=== PATIENT | female | born 1935 | race African-American/Black ===

== ENCOUNTER 2017-05-25 10:32 | Emergency (ER) | payer MEDICARE ==
[2017-05-25 11:55] VITALS: BP 137/80
--- NOTE | 2017-05-25 12:40 | Diagnostic Imaging Report ---
DONALDO LARSEN (MEGAN) - [facility] [address] [facility] [address] 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 Generalized osteopenia. No fracture. No dislocation. Superior and inferior pubic rami and iliac wings are without abnormality. Lumbar spine degenerative changes. Impression: Bilateral hip prostheses. Degenerative changes. No evidence for fracture. Electronically signed on May 25, 2017 11:25:01 AM MATERNITY FLOOR SUPERVISOR by: Patrick COLLINS
--- NOTE | 2017-05-25 14:48 | ED Physician Documentation ---
Fall - HISTORIAN Historian: patient - HPI Stated Complaint: fall Chief Complaint: Fall Onset: just prior to arrival Where: home Context: lost balance r: mild Associated Symptoms:: no loss of consciousness Location of Pain/Injury: other (right hip) Injury to Right Extremity: none Injury to Left Extremity: none Further Comments: yes (81 year old female patient presents with complaint of right hip pain after a fall from standing this morning at home. Patient was discharged from intermediate yesterday. Recent right hip replacement) - ROS CONST: no problems NEURO: denies: dizziness MS/SKIN/LYMPH: denies: weakness, numbness, neck pain, back pain, ankle swelling , leg swelling, rash, other EYES/ENT: none CVS/RESP: none GI/: denies: nausea, vomiting - PAST HX Past History: cardiac disease, diabetes Type 2, other (GERD, hx CABG) Allergies/Adverse Reactions: Allergies Allergy/AdvReac Type Severity Reaction Status Date / Time No Known Allergies Allergy Verified 05/25/17 10:38 Home Medications: Ambulatory Orders Medication Instructions Recorded Apixaban [Eliquis] 2.5 mg PO BID 05/25/17 Gabapentin [Neurontin] 300 mg PO HS 05/25/17 Metformin HCl [Glucophage] 500 mg PO [id number] 05/25/17 Omeprazole [Prilosec] 40 mg PO DAILY 05/25/17 Primidone [Mysoline] 50 mg PO TID 05/25/17 - SOCIAL HX Smoking History: non-smoker - FAMILY HX Family History: none - VITAL SIGNS Vital Signs: Vital Signs Temp Pulse Resp BP Pulse Ox 97.4 F L 88 14 137/80 99 05/25/17 10:32 05/25/17 11:54 05/25/17 11:54 05/25/17 11:54 05/25/17 11:54 - REVIEWED ASSESSMENTS Nursing Assessment Reviewed: Yes Vitals Reviewed: Yes ED Results Lab/Radiology - Radiology Radiology Impressions: Examination: Plain film pelvis/hip History: Fall Comparison exams: None provided Findings: 3 views of the pelvis and right hip demonstrates bilateral hip prostheses. Generalized osteopenia. No fracture. No dislocation. Superior and inferior pubic rami and iliac wings are without abnormality. Lumbar spine degenerative changes. Impression: Bilateral hip prostheses. Degenerative changes. No evidence for fracture. 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 by: - Orders Orders: ED Orders Category Date Time Status RT HIP 2VIEW COMPLETE [RAD] Stat Exams 05/25/17 10:36 Completed Fall Physical Exam - Physical Exam General Appearance: no acute distress, alert Eye: CYRIL Resp/CVS: chest non-tender Abdomen: soft Neuro: oriented x3, CN's nml as tested, sensation nml, motor nml, mood/affect nml, plan examiner nml Skin: color nml Back: normal inspection Extremities: atraumatic, pelvis stable, no pedal edema, nml ROM, nml color/temp , other (right hip tender to touch; no abrasion, no hematoma) - Leonard Coma Score Eyes Open: Spontaneous Speech: Oriented Motor: Obeys Commands Discharge Clincal Impression: Contusion of right hip Qualifiers: Encounter type: initial encounter Qualified Code(s): S70.01XA - Contusion of right hip, initial encounter Fall Qualifiers: Encounter type: initial encounter Qualified Code(s): W19.XXXA - Unspecified fall, initial encounter Referrals: Kaela Ponce MD [Primary Care Provider] - 2 Days Condition: Stable Disposition: 01 HOME, SELF-CARE Decision to Admit: NO Decision Time: 11:45
== END 2017-05-25 11:54 | disposition home or self-care (01) ==
LOC: ED 10:32
DX: S70.01XA Contusion of right hip, initial encounter (principal); W19.XXXA Unspecified fall, initial encounter
CPT/HCPCS: 73502; 99282

== ENCOUNTER 2017-05-29 13:23 | Emergency (ER) | payer MEDICARE ==
[2017-05-29] MEDS: 0.9 % SODIUM CHLORIDE 1,000 ML IV SCH (13:23)
--- NOTE | 2017-05-29 13:36 | ED Physician Documentation ---
General Adult - HISTORIAN Historian: other (daughter) - [facility] Chief Complaint: General Adult (hypoxemia) Additional Information: Patient was noted to be lethargic when she awoke this am . Has become worse throughout the AM. Family states the only discomfort that she voiced this AM was her usual abd pain. Did not seem any worse then before. No other complaints. Patient was noticed not to be breathing well and EMS was contacted. On arrival of EMS patient was found to be hypoxic with SAO2 of 77%. Patient was started on NRM and transported to the ED. On arrival patient was lethargic, answering some questions appropriately, would fall asleep easily, but arousable to verbal stimuli. Patient's pulse ox remained in the high 70's to low 80s. Patient denied any discomfort. Patient had a hip fracture with replacement about 6 weeks ago. Was at [facility] for rehab services. Was discharged home last and seemed to be doing OK until this AM. Onset: hours (Ptie) Timing: still present Severity: moderate - ROS CONST: no problems. denies: fever, recent illness, chills MS/SKIN/LYMPH: joint pain. denies: calf pain NEURO/PSYCH: numbness. denies: headache - PAST HX Past History: COPD, hypertension, other (AAA) Other History: diabetes Type 2, other (GA) Surgeries/Procedures: hysterectomy Allergies/Adverse Reactions: Allergies Allergy/AdvReac Type Severity Reaction Status Date / Time No Known Allergies Allergy Verified 05/25/17 10:38 Home Medications: Ambulatory Orders Medication Instructions Recorded Apixaban [Eliquis] 2.5 mg PO BID 05/25/17 Gabapentin [Neurontin] 300 mg PO HS 05/25/17 Metformin HCl [Glucophage] 500 mg PO [id number] 05/25/17 Omeprazole [Prilosec] 40 mg PO DAILY 05/25/17 Primidone [Mysoline] 50 mg PO TID 05/25/17 - SOCIAL HX Smoking History: non-smoker Alcohol Use: none Drug Use: none - FAMILY HX Family History: No - VITAL SIGNS Vital Signs: Vital Signs Temp Pulse Resp BP Pulse Ox 137/80 05/25/17 11:54 - REVIEWED ASSESSMENTS Nursing Assessment Reviewed: Yes Vitals Reviewed: Yes Progress - Progress Progress: Patient was encouraged to breath but only brought SAO2 up to the lower ninties for a short period. Patient was started on bag mask assistance. Patient's family was consulted about code status and if they wish to proceed with intubation. They stated that they wanted everything done to help keep her a live. They are aware that with COPD there may be difficutlies with removing ventilatory assistance. Etomidate was given nd followed by succinylcholine. Patient intubeted with #7 tube. CO2 detector showed Co2 present, breath sound present bilaterally. Chest x -ray show tube about 2 cm above griffin. SAO2 improved to the mid ninties when a good reading was abouttained. Patient is diabetic BS 169. [facility] called and no ICU beds available. [facility] was call at 1415 for transfer. Bed available. Physician accepted at 1515. Patient remained in critical but stable condition during time in the ED. Patient was transferred to [facility] via helicopter. CT scan of head and chest not done because staff was not available to safely transport and monitor patient during time in the Radiology department. - EKG/XRAY/CT EKG: NSR, nonspecific ST T wave chg Critical Care Note - Critical Care Note Total Time (mins): 90 (direct care) General Adult Physical Exam - PHYSICAL EXAM GENERAL APPEARANCE: mild distress EENT: eye inspection normal, ENT inspection normal, pharynx normal, no signs of dehydration NECK: No: supple (arthritic), lymphadenopathy RESPIRATORY: no resp distress, chest non-tender, breath sounds normal. No: wheezes, rales, rhonchi CVS: reg rate & rhythm, heart sounds normal, equal pulses ABDOMEN: soft, tenderness (mild tenderness), mass (palpable mass in mid abd) SKIN: warm/dry EXTREMITIES: non-tender NEURO: motor nml (moves all extremities,), sensation nml (withdrawals from pain) , other (GCS 9/15). No: oriented X3, CN's nml as tested, cognition normal Discharge Clincal Impression: Hypoxia Referrals: Kaela Ponce MD [Primary Care Provider] - 2 Days Condition: Stable Disposition: HOME, SELF-CARE Decision to Admit: [id number] Date of Decison to Admit: 05/29/17 Decision Time: 14:00
[2017-05-29] MEDS: ETOMIDATE 20 MG/10 ML IV ONE ×3 (13:58)
[2017-05-29] MEDS: SUCCINYLCHOLINE CHLORIDE 20 MG/ML 10ML VIAL IVP ONE (14:02)
[2017-05-29 14:17] LABS: BASOPHILS % 0.9 (0.0-1.5); EOSINOPHILS % 3.9 % (0.0-6.8); MEAN CORPUSCULAR HEMOGLOBIN 27.8 pg (28.0-34.0); MEAN CORPUSCULAR VOLUME 89.9 fl (80.0-100.0); MONOCYTES % 5.9 % (0.0-11.0); NEUTROPHILS # 2.6 # k/uL (1.4-7.7)
[2017-05-29 14:30] LABS: eGFR (African) > 60; eGFR (Non-African) 42
--- NOTE | 2017-05-29 14:42 | Diagnostic Imaging Report ---
FLOR DUCKWORTH [facility] [address] [facility] [address] [address] Report Submission Date: May 29, 2017 2:35:26 PM IN HOUSE CRA Patient Study Name: OPERA DIAMOND Date: May 29, 2017 2:11:48 PM IN HOUSE CRA Modality Type: CR Gender: F Description: CHEST : 31 Institution: [facility] Physician: FLOR DUCKWORTH Examination: Portable chest History: Check tube placement. Comparison exam: None provided. Findings: Single view of the chest demonstrates a normal cardiac and mediastinal silhouette. Vascular calcifications involving the aortic arch. Lung street without focal infiltrate. Flattening of the diaphragms. Endotracheal tube : tip 1.7 cm above the xena. Osseous structures are appropriate for age. Impression: No acute appearing pulmonary process. Endotracheal tube: tip 1.7 cm above the xena. Electronically signed on May 29, 2017 2:35:26 PM IN HOUSE CRA by: Patrick COLLINS
[2017-05-29 15:58] LABS: CANNABINOIDS NEGATIVE ng/mL (< 50); METHYLENEDIOXYMETHAMPHETAMINE NEGATIVE ng/mL (<500)
[2017-05-29 16:36] VITALS: BP 89/50
== END 2017-05-29 15:25 | disposition home or self-care (01) ==
LOC: ED 13:23
DX: R09.02 Hypoxemia (principal); J44.1 Chronic obstructive pulmonary disease with (acute) exacerbation; I10 Essential (primary) hypertension; E11.9 Type 2 diabetes mellitus without complications; I71.4 Abdominal aortic aneurysm, without rupture
CPT/HCPCS: 71010; 80053; 80377; 83605; 84484; 85025; 99284; 99291; J0330; J3490; G0481; S1016

== ENCOUNTER 2017-06-25 12:12 | Emergency (ER) | payer MEDICARE, OTHER ==
[2017-06-25] MEDS ORDERED: 0.9 % SODIUM CHLORIDE 1,000 ML IV ONE ×2 (12:31→14:10)
[2017-06-25 12:40] LABS: BASOPHILS % 0.5 (0.0-1.5); MEAN CORPUSCULAR HEMOGLOBIN 27.9 pg (28.0-34.0); MEAN CORPUSCULAR VOLUME 90.1 fl (80.0-100.0); MONOCYTES % 7.2 % (0.0-11.0); NEUTROPHILS # 3.8 # k/uL (1.4-7.7)
[2017-06-25 12:48] LABS: APPEARANCE,URINE Clear (CLEAR); COLOR,URINE Yellow (YELLOW); OCCULT BLOOD,URINE Negative (NEGATIVE); PH URINE 5.5 (5.0 - 8.0); UROBILINOGEN URINE 0.2 Eu (0.2-1.0)
[2017-06-25 13:08] LABS: AMORPHOUS SEDIMENT,UR FEW (NEGATIVE)
--- NOTE | 2017-06-25 13:12 | ED Physician Documentation ---
General Adult - HISTORIAN Historian: patient - HPI Stated Complaint: transfer from [facility] for low BP Chief Complaint: General Adult Further Comments: yes (81 year old female patient sent in via EMS for evaluation of hypotension from [facility]. Patient was started on Macrobid on 06/21 for UTI. Full Code.) - ROS CONST: recent illness (recent UTI) EYES/ENT: none CVS/RESP: none GI/: none MS/SKIN/LYMPH: none NEURO/PSYCH: denies: headache - PAST HX Past History: COPD, hypertension, other (S/P right femur fracture) Other History: diabetes Type 2, other (anemia, OA, weaknes, dementia, COPD, AAA , essential tremor) Allergies/Adverse Reactions: Allergies Allergy/AdvReac Type Severity Reaction Status Date / Time codeine Allergy Verified 06/25/17 12:29 Home Medications: Ambulatory Orders Medication Instructions Recorded Apixaban [Eliquis] 2.5 mg PO BID 05/25/17 Gabapentin [Neurontin] 300 mg PO HS 05/25/17 Metformin HCl [Glucophage] 500 mg PO [id number] 05/25/17 Omeprazole [Prilosec] 40 mg PO DAILY 05/25/17 Primidone [Mysoline] 50 mg PO TID 05/25/17 Albuterol Sulfate [ProAir 1 puff INH DAILY PRN 06/25/17 RespiClick] - SOCIAL HX Smoking History: non-smoker - FAMILY HX Family History: No - VITAL SIGNS Vital Signs: Vital Signs Temp Pulse Resp BP Pulse Ox 98.1 F 98 H 14 82/55 98 06/25/17 12:16 06/25/17 12:16 06/25/17 12:16 06/25/17 12:16 06/25/17 12:16 - REVIEWED ASSESSMENTS Nursing Assessment Reviewed: Yes Vitals Reviewed: Yes Progress - Progress Progress: Chemistry machine down due to technical problem. Will hold patient until repair made and CMP results obtained. BUN 68 with Cr 1.[address] Aguila - 2L given in Er, updated on buttock wounds, orders for Wound care consult. Requested we review patient's code status with family. Discussed code status with daughter. Explained risks and benefits. Daughter states "these are her wishes". Patient to remain full code. ED Results Lab/Radiology - Lab Results Lab Results: Lab Results 06/25/17 06/25/17 12:35 12:31 WBC 6.10 K/ul K/ul (4.00-12.00) RBC 4.03 M/ul M/ul (3.90-5.20) Hgb 11.2 g/dL L g/dL (12.0-16.0) Hct 36.3 % % (34.5-46.5) MCV 90.1 fl fl (80.0-100.0) MCH 27.9 pg L pg (28.0-34.0) MCHC 31.0 g/dL g/dL (30.0-36.0) RDW 14.9 % H % (11.3-14.3) Plt Count 334 K/mm3 K/mm3 (130-400) Neut % (Auto) 62.8 % % (39.0-79.0) Lymph % (Auto) 25.1 % % (16.0-50.0) [place] % (Auto) 7.2 % % (0.0-11.0) Eos % (Auto) 2.0 % % (0.0-6.8) Baso % (Auto) 0.5 (0.0-1.5) Neut # (Auto) 3.8 # k/uL # k/uL (1.4-7.7) Lymph # (Auto) 1.5 # k/uL # k/uL (0.6-4.0) [place] # (Auto) 0.4 # k/uL # k/uL (0.0-0.9) Eos # (Auto) 0.1 # k/uL # k/uL (0.0-0.6) Baso # (Auto) 0.0 # k/uL # k/uL (0.0-0.5) Reactive Lymphs % 2.4 % % (0.0-5.0) Reactive Lymphs # 0.2 # k/uL # k/uL (0.0-0.8) Urine Color Yellow (YELLOW) Urine Appearance Clear (CLEAR) Urine pH 5.5 (5.0 - 8.0) Ur Specific [place] 1.025 (1.010-1.030) Urine Protein 2+ mg/dL H mg/dL (NEGATIVE) Urine Ketones Trace mg/dL mg/dL (NEGATIVE) Urine Occult Blood Negative (NEGATIVE) Urine Nitrite Negative (NEGATIVE) Urine Bilirubin 1+ H (NEGATIVE) Urine Urobilinogen 0.2 Eu Eu (0.2-1.0) Ur Leukocyte Esterase Negative (NEGATIVE) Urine RBC 0-2 (0-2 HPF) Urine WBC 2-5 (0-5 HPF) Amorphous Sediment Few H (NEGATIVE) Urine Glucose Negative mg/dL mg/dL (NEGATIVE) - Orders Orders: ED Orders Category Date Time Status Place IV Lock 1T Care 06/25/17 12:31 Active CBC/PLATELET/DIFF Stat Lab 06/25/17 12:35 Completed CMP Stat Lab 06/25/17 12:35 Received UA W/MICRO IF INDICATED Stat Lab 06/25/17 12:31 Completed 0.9 % Sodium Chloride [Normal Saline] 1,000 ml Med 06/25/17 12:31 Discontinued IV NOW General Adult Physical Exam - PHYSICAL EXAM GENERAL APPEARANCE: [id number] N EENT: eye inspection normal, CYRIL RESPIRATORY: no resp distress, chest non-tender, breath sounds normal CVS: reg rate & rhythm, heart sounds normal, equal pulses, no murmur, no gallop , PMI nml, no JVD, no friction rub, 24 ABDOMEN: soft, no organomegaly, normal bowel sounds, no abdominal bruit, no distension, bruit (AAA - palpable) SKIN: warm/dry, normal color, other (Stage 2 wounds on bilateral buttocks - foam dressing applied) EXTREMITIES: non-tender, normal range of motion, no evidence of injury, no edema , J, 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 NEURO: oriented X3, CN's nml as tested, motor nml, sensation nml, mood/affect nml Discharge Clincal Impression: Dehydration Wound, open, buttock Qualifiers: Encounter type: initial encounter Laterality: right Qualified Code(s): S31.819A - Unspecified open wound of right buttock, initial encounter Wound of left buttock Qualifiers: Encounter type: initial encounter Qualified Code(s): S31.829A - Unspecified open wound of left buttock, initial encounter Referrals: Kaela Ponce MD [Primary Care Provider] - 2 Days Additional Instructions: Encourage PO fluids - at least 64 oz per day Continue all daily medications; finish Macrobid Condition: Stable Disposition: 01 HOME, SELF-CARE Decision to Admit: NO Decision Time: 14:46
[2017-06-25 15:40] VITALS: BP 136/56
== END 2017-06-25 15:49 | disposition home or self-care (01) ==
LOC: ED 12:12
DX: E86.0 Dehydration (principal); I95.9 Hypotension, unspecified; S31.819A Unspecified open wound of right buttock, initial encounter; S31.829A Unspecified open wound of left buttock, initial encounter; X58.XXXA Exposure to other specified factors, initial encounter; Y92.129 Unspecified place in nursing home as the place of occurrence of the external cause; Y93.9 Activity, unspecified
CPT/HCPCS: 51701; 80053; 81002; 85025; J7030; 96360; 96361; 99283; S1016

== ENCOUNTER 2018-08-19 14:45 | Emergency (ER) | payer OTHER ==
--- NOTE | 2018-08-19 15:11 | ED Physician Documentation ---
Abdominal Pain - HISTORIAN Historian: patient, child (Daughter at bedside) - HPI Stated Complaint: abd pain Chief Complaint: Abdominal Pain Additonal Information: Patient is an 82-year-old female who presents to the ER with daughter with c/o abdominal pain. Patient/daughter states that patient has a "leaking aortic aneurysm and was told to come to ER if she ever had abdominal pain. Patient states that she always has abdominal pain but feels like it has worsened over the last 2-3 days. She states that they wanted to do surgery but she does not want too. She denies f/c/n/v/d/SOA or chest pain. She states that she had a sma ll hard BM yesterday and has been having burning and pain with urination over the last few days as well. [ End ] Onset: days ago (2-3 days ago worsening) Duration: waxing, waning, gradual Timing: still present Context: denies: out of country travel, bad food Severity: moderate Quality: aching Associated Symptoms: none Exacerbated by: movements Relieved by: remaining still - ROS CONST: no problems GI/: constipation CVS/RESP: none EYES/ENT: none MS/SKIN/LYMPH: none NEURO/PSYCH: none - SOCIAL HX Smoking History: non-smoker Alcohol Use: none Drug Use: none - FAMILY HX Family History: no significant history - PAST HX Past History: bladder infection Ischemic Bowel Risk Factors: elderly Other History: diabetes Type 2, hypertension, other (COPD, AAA, OA, Dementia, essential tremor) Surgeries/Procedures: hysterectomy, other (left hip surgery) Immunizations: UTD Home Medications: Ambulatory Orders Medication Instructions Recorded Omeprazole [Prilosec] 40 mg PO DAILY 05/25/17 Primidone [Mysoline] 50 mg PO TID 05/25/17 Amlodipine Besylate 10 mg PO DAILY u2 07/17/18 Multivit-Min/FA/Lycopen/Lutein 1 each PO DAILY u2 07/17/18 [Centrum Silver Tablet] Primidone 100 mg PO TID u2 07/17/18 Allergies/Adverse Reactions: Allergies Allergy/AdvReac Type Severity Reaction Status Date / Time codeine Allergy Verified 08/19/18 15:10 - VITAL SIGNS Vital Signs: Vital Signs Temp Pulse Resp BP Pulse Ox 97.7 F 72 18 182/82 96 08/19/18 14:49 08/19/18 17:07 04/22/19 14:49 08/19/18 14:49 08/19/18 17:07 - REVIEWED ASSESSMENTS Nursing Assessment Reviewed: Yes Vitals Reviewed: Yes Progress - Progress Progress: 17:10 patient feeling better- eating crackers- received 500 cc of NS Will go home with daughter ED Results Lab/Radiology - Lab Results Lab Results: Lab Results 08/19/18 08/19/18 08/19/18 15:36 15:30 15:30 WBC RBC Hgb Hct MCV MCH MCHC RDW Plt Count Seg Neutrophils % Lymphocytes % Monocytes % Eosinophils % RBC Morph Comment Sodium 137 mmol/L mmol/L (137-145) Potassium 4.1 mmol/L mmol/L (3.5-5.1) Chloride 101 mmol/L mmol/L (98-107) Carbon Dioxide 32 mmol/L H mmol/L (22-30) BUN 23 mg/dL H mg/dL (7-17) Creatinine 0.84 mg/dL mg/dL (0.52-1.04) Estimated Creat Clear 46 Est GFR ( Amer) > 60 (60 - ) Est GFR (Non-Af Amer) > 60 (60 - ) Glucose 190 mg/dL H mg/dL (74-106) Calcium 9.5 mg/dL mg/dL (8.4-10.2) Total Bilirubin 0.3 mg/dL mg/dL (0.2-1.3) AST 31 U/L U/L (15-46) ALT 17 U/L U/L (0-35) Alkaline Phosphatase 107 U/L U/L (38-126) Creatine Kinase 66 U/L U/L (30-135) CK-MB (CK-2) Pending Troponin I < 0.012 ng/mL L ng/mL (0.012-0.034) Total Protein 7.1 g/dL g/dL (6.3-8.2) Albumin 4.1 g/dL g/dL (3.5-5.0) Urine Color Yellow (YELLOW) Urine Appearance Cloudy H (CLEAR) Urine pH 7.0 (5.0 - 8.0) Ur Specific [place] 1.015 (1.010-1.030) Urine Protein Negative mg/dL mg/dL (NEGATIVE) Urine Ketones Negative mg/dL mg/dL (NEGATIVE) Urine Occult Blood Negative (NEGATIVE) Urine Nitrite Negative (NEGATIVE) Urine Bilirubin Negative (NEGATIVE) Urine Urobilinogen 0.2 Eu Eu (0.2-1.0) Ur Leukocyte Esterase Trace H (NEGATIVE) Urine Glucose Trace mg/dL mg/dL (NEGATIVE) 08/19/18 15:30 WBC 4.70 K/ul K/ul (4.00-12.00) RBC 4.71 M/ul M/ul (3.90-5.20) Hgb 13.2 g/dL g/dL (11.5-16.0) Hct 39.6 % % (34.5-46.5) MCV 83.0 fl fl (80.0-100.0) MCH 28.0 pg pg (28.0-34.0) MCHC 33.6 g/dL g/dL (30.0-36.0) RDW 15.0 % H % (11.3-14.3) Plt Count 177 K/mm3 K/mm3 (130-400) Seg Neutrophils % 41 % % (39-79) Lymphocytes % 49 % % (16-50) Monocytes % 9 % % (0-11) Eosinophils % 1 % % (0-7) RBC Morph Comment Normal (NORMAL) Sodium Potassium Chloride Carbon Dioxide BUN Creatinine Estimated Creat Clear Est GFR ( Amer) Est GFR (Non-Af Amer) Glucose Calcium Total Bilirubin AST ALT Alkaline Phosphatase Creatine Kinase CK-MB (CK-2) Troponin I Total Protein Albumin Urine Color Urine Appearance Urine pH Ur Specific [place] Urine Protein Urine Ketones Urine Occult Blood Urine Nitrite Urine Bilirubin Urine Urobilinogen Ur Leukocyte Esterase Urine Glucose - Radiology Radiology Impressions: EKG- Sinus rhythm with rate of 71 Examination: Obstruction series History: EPIGASTRIC ABDOMINAL PAIN. Findings: 4 views obtained of the chest and abdomen. No abnormal dilation of the large or small bowel. Moderate stool throughout the large bowel. No suspicious calcifications projecting over the renal fossa or the lower pelvic region. Bilateral hip prostheses. Osseous degenerative changes. Lungs without focal consolidation. No blunting of the costophrenic margin. Tortuous aorta. Prominent hilar vasculature. Impression: Moderate large bowel stool. No obstruction. No suspicious calcifications by plain film sensitivity. No acute cardiopulmonary process. Electronically signed on Aug 19, 2018 5:07:38 PM CDT by: Patrick Henrik - Orders Orders: ED Orders Category Date Time Status Continuous EKG monitoring Q30M Care 08/19/18 15:09 Active Continuous Pulse Oximetry Q30M Care 08/19/18 15:[address] IV Lock 1T Care 08/19/18 15:09 Active ABD SERIES PA CHEST [RAD] Stat Exams 08/19/18 Taken CBC/PLATELET/DIFF Stat Lab 08/19/18 15:30 Completed CKMB Stat Lab 08/19/18 15:30 Results CMP Stat Lab 08/19/18 15:30 Completed CREATINE KINASE Stat Lab 08/19/18 15:30 Completed TROPONIN I Stat Lab 08/19/18 15:30 Results UA MACRO DIP ONLY Routine Lab 08/19/18 15:36 Completed 0.9 % Sodium Chloride [Normal Saline] 500 ml Med 08/19/18 16:41 Active IV NOW EKG WITH COMPARISON Stat Ther 08/19/18 15:09 Completed Abdominal Pain Physical Exam - Physical Exam General Appearance: alert, mild distress EENT: eye inspection normal, ENT inspection normal, pharynx normal, CYRIL NECK: normal inspection, supple RESPIRATORY: breath sounds normal CVS: reg rate & rhythm, heart sounds normal, equal pulses ABDOMEN: normal bowel sounds, tenderness (lower abdomen) BACK: normal inspection SKIN: warm/dry, pallor EXTREMITIES: non-tender, normal range of motion NEURO: oriented X3, CN's nml as tested, motor nml, sensation nml, mood/affect nml Vital Signs: Vital Signs Temp Pulse Resp BP Pulse Ox 97.7 F 72 18 182/82 96 08/19/18 14:49 08/19/18 17:07 08/19/18 14:49 08/19/18 14:49 08/19/18 17:07 Discharge Clincal Impression: Constipation Referrals: Darien Aguila MD [Primary Care Provider] - 2 Days Additional Instructions: Increase water intake Take stool softener over the counter twice a day Miralax or Metamucil daily Increase fiber in diet Follow up with PCP this week Condition: Good Disposition: 01 HOME, SELF-CARE Decision to Admit: NO Decision Time: 17:16
[2018-08-19 16:02] LABS: EOSINOPHILS % 1 % (0-7); MONOCYTES % 9 % (0-11); SEGMENTED NEUTROPHILS % 41 % (39-79)
[2018-08-19 16:29] LABS: eGFR (Non-African) > 60
[2018-08-19 16:59] LABS: APPEARANCE,URINE CLOUDY (CLEAR); COLOR,URINE YELLOW (YELLOW)
[2018-08-19 17:00] LABS: OCCULT BLOOD,URINE NEGATIVE (NEGATIVE); UROBILINOGEN URINE 0.2 Eu (0.2-1.0)
[2018-08-19] MEDS: 0.9 % SODIUM CHLORIDE 500 ML IV ONE (17:09)
--- NOTE | 2018-08-19 17:11 | Diagnostic Imaging Report ---
JANY SARAH ED [facility] [address] [facility] [address] [address] Report Submission Date: Aug 19, 2018 5:07:38 PM CDT Patient Study Name: OPERA Joaquín FIELDS Date: Aug 19, 2018 3:16:32 PM CDT Modality Type: DX Gender: F Description: ABD SERIES PA CHEST : 31 Institution: [facility] Physician: JANY SARAH ED Examination: Obstruction series History: EPIGASTRIC ABDOMINAL PAIN. Findings: 4 views obtained of the chest and abdomen. No abnormal dilation of the large or small bowel. Moderate stool throughout the large bowel. No suspicious calcifications projecting over the renal fossa or the lower pelvic region. Bilateral hip prostheses. Osseous degenerative changes. Lungs without focal consolidation. No blunting of the costophrenic margin. Tortuous aorta. Prominent hilar vasculature. Impression: Moderate large bowel stool. No obstruction. No suspicious calcifications by plain film sensitivity. No acute cardiopulmonary process. Electronically signed on Aug 19, 2018 5:07:38 PM CDT by: Patrick COLLINS
[2018-08-19 17:37] VITALS: BP 150/90
== END 2018-08-19 17:30 | disposition home or self-care (01) ==
LOC: ED 14:45
DX: K59.00 Constipation, unspecified (principal)
CPT/HCPCS: 36415; 74022; 80053; 81002; 82550; 82553; 84484; 85025; 93005; 99283; 99284; J7060; S1016